=== PATIENT | female | born 1990 | race Caucasian/White ===

== ENCOUNTER 2020-03-04 11:41 | Emergency (ER) | payer OTHER ==
[2020-03-04 12:22] VITALS: BP 113/66; PULSE 67; TEMP 98.2; BMI 25.0
[2020-03-04 13:06] LABS: BASO % 0.5 % (0-2.0); EOS % 0.9 % (0-4.5); HEMATOCRIT 41.5 % (32.4-45.2); HEMOGLOBIN 14.2 GM/dL (10.7-15.3); LYMPH % 27.2 % (8-40); MCH 32.8 pg (25.7-33.7); MCHC 34.1 g/dl (32.0-36.0); MEAN CELL VOLUME 96.2 fl (80-96); MONO % 4.5 % (3.8-10.2); NEUT % 66.9 % (42.8-82.8); PLATELET COUNT 299 K/MM3 (134-434); RBC 4.32 M/mm3 (3.60-5.2); RDW 13.1 % (11.6-15.6); WHITE BLOOD COUNT 9.9 K/mm3 (4.0-10.0)
[2020-03-04 13:18] LABS: POTASSIUM 4.9 mmol/L (3.5-5.1)
[2020-03-04 13:21] LABS: BLOOD UREA NITROGEN 19.1 mg/dL (7-18)
[2020-03-04 13:24] LABS: CREATININE 0.7 mg/dL (0.55-1.3)
== END 2020-03-04 13:54 | disposition home or self-care (01) ==
LOC: JER 11:41 → JERFT 11:41
DX: O72.2 Delayed and secondary postpartum hemorrhage (principal)
CPT/HCPCS: 36415; 76856-TC; 80048; 85025; 99284-25